=== PATIENT | female | born 1995 | race Hispanic/Latino ===

== ENCOUNTER 2018-06-27 17:12 | Emergency (ER) | payer OTHER ==
[2018-06-27 18:27] LABS: BASO % 0.1 % (0.0-1.0); EOS # 0.1 10^3/uL (0.0-0.50); EOS % 1.5 % (0.0-3.0); HEMATOCRIT 35.5 % (36.0-47.0); HEMOGLOBIN 12.1 g/dl (12.0-15.5); IMMATURE GRANULOCYTE % 0.3 % (0-3.0); LYMPH # 2.1 10^3/uL (1.5-6.5); LYMPH % 27.9 % (24.0-44.0); MEAN CORPUSCULAR HEMOGLOBIN 29.3 pg (27.0-33.0); MEAN CORPUSCULAR HGB CONC 34.1 g/dl (32.0-36.5); MONO # 0.5 10^3/uL (0.0-0.8); MONO % 6.8 % (0.0-5.0); NEUTROPHILS # 4.7 10^3/uL (1.8-7.7); NEUTROPHILS % 63.4 % (36.0-66.0); PLATELET COUNT, AUTOMATED 259 10^3/uL (150-450); RED BLOOD COUNT 4.13 10^6/uL (4.00-5.40); RED CELL DISTRIBUTION WIDTH 12.8 % (11.5-14.5); WHITE BLOOD COUNT 7.5 10^3/uL (4.0-10.0)
[2018-06-27] MEDS: METOCLOPRAMIDE 10 MG TAB PO (18:36)
[2018-06-27 18:43] LABS: KETONE, URINE AUTO RFX NEGATIVE (NEGATIVE); LEUKOCYTE ESTERASE UR AUTO RFX NEGATIVE (NEGATIVE); NITRITE, URINE AUTO RFX NEGATIVE (NEGATIVE); RBC, URINE AUTO RFX 1 /HPF (0-3); SQUAM EPITHELIAL CELL UR AURFX 0 /HPF (0-6); WBC, URINE AUTO RFX 0 /HPF (0-3)
[2018-06-27 18:59] LABS: HCG, SERUM QUANTITATIVE 40069 MIU/ML
== END 2018-06-27 20:42 | disposition home or self-care (01) ==
LOC: M ED 17:12
DX: O20.9 Hemorrhage in early pregnancy, unspecified (principal); Z3A.01 Less than 8 weeks gestation of pregnancy
CPT/HCPCS: 76801

== ENCOUNTER → 2018-10-06 | Outpatient (REF) | payer OTHER | LOC: M SFHCLERA 13:43 | DX: J02.9 Acute pharyngitis, unspecified (principal) ==

== ENCOUNTER 2019-02-01 21:13 | Inpatient (IN) | payer OTHER ==
[~2019-02-01] VITALS: Ht 165.1 cm; Wt 78.0 kg
[2019-02-01] MEDS ORDERED: OXYTOCIN 30 UNITS IN 0.9% NaCl 500ML IV BAG (J2590) As Ordered ONE (21:34)
[2019-02-01 21:52] LABS: HEMOGLOBIN 12.4 g/dl (12.0-15.5); MEAN CORPUSCULAR HEMOGLOBIN 29.8 pg (27.0-33.0); MEAN CORPUSCULAR HGB CONC 34.4 g/dl (32.0-36.5); MEAN CORPUSCULAR VOLUME 86.5 fl (80.0-96.0); PLATELET COUNT, AUTOMATED 182 10^3/uL (150-450); RED BLOOD COUNT 4.16 10^6/uL (4.00-5.40)
[2019-02-01 22:00] VITALS: BP 120/66
[2019-02-01 22:11] VITALS: BP 126/67
[2019-02-01] MEDS ORDERED: OXYTOCIN DRIP 30 UNITS in APPROPRIATE DILUENT 1 EA IV SCH (22:19)
[2019-02-01] MEDS ORDERED: DOCUSATE SODIUM 100 MG CAP PO PRN (22:30)
[2019-02-01] MEDS ORDERED: MEASLES,MUMPS,RUBELLA VACCINE INJ (MMR-II) (90707) SC SCH (22:30)
[2019-02-01] MEDS ORDERED: RHOGAM 300 MCG (1500 IU) INJ (J2790) IM SCH (22:30)
[2019-02-01] MEDS ORDERED: DIBUCAINE 1% OINTMENT 30GM TOP PRN (22:30)
[2019-02-01 22:33] VITALS: BP 108/59
[2019-02-01] MEDS: IBUPROFEN 800 MG TAB PO PRN (22:34)
--- NOTE | 2019-02-01 22:34 | HPEPDOC ---
Obstetrical History & Physical General Date of Admission Feb 01, 2019 at 21:34 History of Present Illness Patient delivered precipitously after arrival, H&P written after delivery Yayo is a 24yo with SIUP at 37w5d presenting with regular painful ctx that started around 1800. LOF, clear, occurred upon arrival. No vaginal bleeding. Feels good movement. Chief Complaint: Contractions, term Information Provided By: Patient Care Care: Good Care Dating Final EDC: Feb 17, 2019 Final EDC by: LMP, 1st trimester (US) Antepartum Course Diagnos(e)s Rh negative MBT, received rhogam 11/29/18. Varicella equivocal. Height (inches): 65 Pre- weight (lbs.): 135 Admission Weight (lbs.): 168 Change in Weight (lbs.): 27 Past Medical History Past Obstetrical History : Past Obstetrical History: Multigravida ( at term 08/15/15, [id number]) Past Medical History Medical History seasonal allergies Surgical History: Denies/None Family History Significant Family History: No pertinent family hx Social History Marital Status: Family situation: Spouse/partner home Psychosocial History: No pertinent psych hx * Smoker: non-smoker Alcohol: Denies Drugs: denies Imunizations Tdap status: current Influenza Status: current Allergies Coded Allergies: No Known Allergies (Unverified , 06/27/18) Medications No Active Prescriptions or Reported Meds Physical Examination Physical Examination GENERAL: Alert and oriented times three. ABDOMEN: Gravid and non-tender to touch. FETUS: Is vertex (VTX) by sterile vaginal examination (SVE) EXTREMITIES: No edema Laboratory Data 24H LABS Laboratory Tests 2 02/01/19 21:38: Serology Scanned Report Hepatitis B Testing 02/01/19 21:40: Nucleated Red Blood Cells % (auto) 0.0 CBC/BMP Laboratory Tests 02/01/19 21:40 Red Blood Count 4.16, Mean Corpuscular Volume 86.5, Mean Corpuscular Hemoglobin 29.8, Mean Corpuscular Hemoglobin Concent 34.4, Red Cell Distribution Width 13.0 Pertinent Laboratoy Data Blood Type: A- RBC Antibody Screen: Negative HIV: Negative Hepatitis B: Negative Hepatitis C: Unknown Rapid Plasma Reagin: Nonreactive Rubella: Immune Varicella: Immune Chlamydia/Gonorrhea: Negative Group B Streptococcus: Negative Quad Screen Test: Negative Glucose Tolerance Test: 119 Anatomy Ultrasound Ultrasound Date: Oct 02, 2018 Placenta Location: Posterior Normal Anatomy: Yes Placenta Previa: No Steroid Therapy Steroid Therapy: No Vaginal Examination Dilation: 9 cm Effacement: 100% Station: 0 Cervical Consistency: Soft Cervical Position: Anterior Presentation: Cephalic presentation Assessment Heart Rate (FHR): 150 Variability: Moderate Accelerations: Positive Decelerations: None Tocometer Contractions: Yes Frequency: regular, every 2-5 min. Duration: greater than 60 seconds Strength: palpated as strong Assessment/Plan Assessment Yayo is a 24yo with SIUP at 37w5d in active labor with SCE 9/C/0, clear SROM on arrival. Cat I FHRT with ctx q3min. Vitals wnl, benign exam. Cephalic. GBS neg. Plan Admit and orient. De Alcoholizer and consent. Diet: NPO Group B Streptococcus (GBS) negative Labs and intravenous (IV) per unit protocol. Anticipate normal spontaneous delivery () MD Elio Morales Katrina D MD Feb 01, 2019 22:34
[2019-02-01 22:59] VITALS: BP 114/67
[2019-02-01 23:39] VITALS: BP 115/68
--- NOTE | 2019-02-02 00:04 | DNPDOC ---
[facility] Delivery Note Delivery Note DATE OF DELIVERY: 01 February 2019 PREDELIVERY DIAGNOSIS: 37w5d gestation and labor. POST DELIVERY DIAGNOSIS: Delivered. PROCEDURE: Spontaneous vaginal delivery EXTENSION SERVICE ADVISOR: Dr. Katherine Ballard MD ANESTHESIA: none ESTIMATED BLOOD LOSS: 200 mL. FINDINGS: 6 pound 7 ounce (2920g) male infant, Score 8/9, nuchal cord times 1. DELIVERY SUMMARY: Yayo is a 24yo [id number] s/p uncomplicated precipitous after presenting in active labor at 37w5d, delivering at 2151 on 02/01/19. She quickly progressed from 9cm to C/C/0, AROM was performed with clear fluid noted. She began pushing and within a few sets of pushes, head delivered OA, restituted FLAKO. Tight nuchal cord noted, delivered through. Left anterior shoulder delivered followed by posterior shoulder and corpus. Nuchal cord unwound, infant was vigorous, placed on maternal abdomen having good spontaneous cry, apgars 8/9. After approx 2 minutes, cord was clamped x2 and cut by FOB. Cord blood obtained for Rh neg. With uterine massage and traction on the cord, placenta delivered spontaneously and intact with 3 vessel centrally inserted cord. IV pitocin given per protocol. More uterine massage performed, fundus firm at u-2cm. Inspection of perineum and vagina revealed very small 1mll repaired with figure of 8 using 3-0 vicryl with hemostasis and good reapproximation. Mom and infant were doing well when I left the room. MD Elio Morales Katrina D MD Feb 02, 2019 00:04
[2019-02-02 00:30] VITALS: BP 114/67
[2019-02-02] MEDS: ACETAMINOPHEN 500 MG TAB PO PRN ×3 (05:34→18:31)
[2019-02-02 05:42] VITALS: BP 100/58
[2019-02-02] MEDS: PRENATAL VITAMINS CHEWABLE TABLET PO SCH (07:56)
--- NOTE | 2019-02-02 08:10 | IPNPDOC ---
Progress Note Date of Service: Feb 02, 2019 Day#: 1 Progress Note PPD 1 SUBJECT: Yayo is a 24yo [id number] s/p uncomplicated after presenting in active precipitous labor, doing well day # 1. She has been ambulating, voiding spontaneously without issue and tolerating regular diet. Bottle feeding. Reports lochia is like a normal period. No f/c/n/v/CP/SOB. OBJECTIVE: VITAL SIGNS: Within normal limits, afebrile. Alert and oriented times three. Abdomen: Fundus firm at U-2. Soft, NTTP. Extremities: no pain with palpation of calves ASSESSMENT: Yayo is a 24yo [id number] s/p uncomplicated after presenting in active precipitous labor, doing well day # 1. Vitals within normal limits, afebrile, hemodynamically stable with no evidence of infection. PLAN: 1. Routine care 2. Tylenol and Motrin for pain. 3. I encouraged breast feeding, patient is considering 4. Interested in minipill for contraception 5. Possible discharge home tomorrow morning if meeting all milestones Dr. Katherine Ballard MD VS, I&O, 24H, [facility] Vital Signs/I&O Vital Signs Date Time Temp Pulse Resp B/P (MAP) Pulse Ox O2 Delivery O2 Flow Rate FiO2 02/02/19 05:42 98.1 77 20 100/58 (72) I&O- Last 24 Hours up to 6 AM 02/02/19 06:00 Output Total 200 ml Balance -200 ml Laboratory Data 24H LABS Laboratory Tests 2 02/01/19 21:38: Serology Scanned Report Hepatitis B Testing 02/01/19 21:40: Nucleated Red Blood Cells % (auto) 0.0 CBC/BMP Laboratory Tests 02/01/19 21:40 Red Blood Count 4.16, Mean Corpuscular Volume 86.5, Mean Corpuscular Hemoglobin 29.8, Mean Corpuscular Hemoglobin Concent 34.4, Red Cell Distribution Width 13.0 Katherine Ballard MD Feb 02, 2019 08:10
[2019-02-02] MEDS: IBUPROFEN 800 MG TAB PO PRN (15:57)
[2019-02-02 18:00] VITALS: BP 104/56
[2019-02-03 06:03] VITALS: BP 90/55
--- NOTE | 2019-02-03 07:38 | IPNPDOC ---
Text Note Date of Service The patient was seen on 02/03/19. NOTE ADMITTING DIAGNOSES: Active labor DISCHARGE DIAGNOSES: Same, HOSPITAL COURSE: Admitted and delivery uncomplicated, . course uncomplicated. DISCHARGE MEDICATIONS: Motrin, Lanolin, Nor DISCHARGE INSTRUCTIONS: Nothing in the vagina for 6 weeks. F/U in OBGYN clinic in 6-8 weeks. Sessions VS,Denise, I+O VS, Denise, I+O Vital Signs Date Time Temp Pulse Resp B/P (MAP) Pulse Ox O2 Delivery O2 Flow Rate FiO2 02/03/19 06:03 98.3 72 20 90/55 (67) SESSIONS,AFIRCA Rodriguez MD Feb 03, 2019 07:38
--- NOTE | 2019-02-03 07:41 | DS.PDOC ---
Discharge Summary General Date of Admission Feb 01, 2019 at 21:34 Date of Discharge [id number] Discharge Summary ADMITTING DIAGNOSES: Active labor DISCHARGE DIAGNOSES: Same, HOSPITAL COURSE: Admitted and delivery uncomplicated, . course uncomplicated. DISCHARGE MEDICATIONS: Motrin, Lanolin, Nor DISCHARGE INSTRUCTIONS: Nothing in the vagina for 6 weeks. F/U in OBGYN clinic in 6-8 weeks. Sessions Vital Signs/I&Os Vital Signs Date Time Temp Pulse Resp B/P (MAP) Pulse Ox O2 Delivery O2 Flow Rate FiO2 02/03/19 06:03 98.3 72 20 90/55 (67) Discharge Medications No Active Prescriptions or Reported Meds Allergies Coded Allergies: No Known Allergies (Unverified , 06/27/18) SESSIONSAFRICA MD Feb 03, 2019 07:41
[2019-02-03] MEDS: IBUPROFEN 800 MG TAB PO PRN ×2 (07:50→15:51)
[2019-02-03] MEDS: PRENATAL VITAMINS CHEWABLE TABLET PO SCH (07:50)
[2019-02-03] MEDS: ACETAMINOPHEN 500 MG TAB PO PRN ×2 (09:11→18:09)
[2019-02-03] MEDS ORDERED: PRENTAB9 PO (09:28)
[2019-02-03] MEDS ORDERED: MAPA500T2 PO (09:28)
[2019-02-03] MEDS ORDERED: IBUP-1114 PO (09:28)
--- NOTE | 2019-02-05 14:01 | IPN ---
DATE: 02/01/2019 This patient and her requested circumcision of their male . After discussing risks and benefits of circumcision, the medical and nonmedical indications, penile block and aftercare, expressed understanding of penile block and aftercare, all questions were answered. 20-minute discussion, signed the consent form. We await clearance by the civil division commander deputy sheriff.
== END 2019-02-03 18:15 | disposition home or self-care (01) | DRG 807 ==
LOC: M LDO 21:13 → M LDI 21:34 → M OBS 02-02 00:02
PROVIDERS: ADMIT Obstetrics & Gynecology; ATTEND Obstetrics & Gynecology
PROC: 10E0XZZ Delivery of Products of Conception, External Approach (ICD-10-PCS; principal; 2019-02-01)
PROC: 10907ZC Drainage of Amniotic Fluid, Therapeutic from Products of Conception, Via Natural or Artificial Opening (ICD-10-PCS; 2019-02-01)
PROC: 0HQ9XZZ Repair Perineum Skin, External Approach (ICD-10-PCS; 2019-02-01)
DX: O62.3 Precipitate labor (principal); Z37.0 Single live birth; Z3A.37 37 weeks gestation of pregnancy; O69.81X0 Labor and delivery complicated by cord around neck, without compression, not applicable or unspecified; O70.0 First degree perineal laceration during delivery